=== PATIENT | female | born 1955 | race Caucasian/White ===

== ENCOUNTER 2018-02-19 07:22 | Emergency (ER) | payer BC ==
[~2018-02-19] VITALS: Ht 172.7 cm; Wt 117.9 kg
--- NOTE | 2018-02-19 07:35 | NUR ---
PATIENT BROUGHT IN BY HERSELF COMPLAIN OF LEFT SHOULDER PAIN RADIATES TO LEFT ARM x 2 DAYS. DENEIS RECENT FALLS OR TRAUMA. BREATHING EVEN AND UNLABORED WITH NO DISTRESS NOTED. SKIN INTACT AND WNLS. AWAITING FOR MD
--- NOTE | 2018-02-19 08:14 | NUR ---
Patient discharged to home in stable condition. Written and verbal after care instructions given. Patient verbalizes understanding of instruction.
[2018-02-19 08:17] VITALS: BP 138/84
== END 2018-02-19 08:14 | disposition home or self-care (01) ==
LOC: ER 07:29
DX: M25.512 Pain in left shoulder (principal); I10 Essential (primary) hypertension; E78.00 Pure hypercholesterolemia, unspecified
CPT/HCPCS: 93005; 99283; A4606; Z7610